=== PATIENT | female | born 1965 | race Native Hawaiian/Other Pacific Islander ===

== ENCOUNTER 2016-12-21 11:37 | Outpatient (CLI) | payer BC | END 2016-12-21 12:37 | disposition home or self-care (01) | LOC: RESP 11:37 | DX: Z01.812 Encounter for preprocedural laboratory examination (principal); Z79.01 Long term (current) use of anticoagulants; M48.06 Spinal stenosis, lumbar region; M53.2X6 Spinal instabilities, lumbar region; Z51.81 Encounter for therapeutic drug level monitoring; M05.69 Rheumatoid arthritis of multiple sites with involvement of other organs and systems; M05.79 Rheumatoid arthritis with rheumatoid factor of multiple sites without organ or systems involvement ==

== ENCOUNTER 2017-06-11 09:36 | Outpatient (CLI) | payer BC | END 2017-06-11 10:40 | disposition home or self-care (01) | LOC: RESP 09:36 | DX: Z01.818 Encounter for other preprocedural examination (principal) | CPT/HCPCS: 93005 ==

== ENCOUNTER 2017-07-17 14:29 | Outpatient (CLI) | payer BC ==
[2017-07-17 14:49] LABS: POTASSIUM 4.4 mmol/L (3.6-5.2)
[2017-07-17 14:52] LABS: PLATELET COUNT 430 K/uL (152-353)
== END 2017-07-17 19:17 | disposition home or self-care (01) ==
LOC: LAB 14:29
PROVIDERS: Internal Medicine
DX: T81.4XXD Infection following a procedure, subsequent encounter (principal)
CPT/HCPCS: 80053; 82550; 85027

== ENCOUNTER 2017-07-24 15:38 | Outpatient (CLI) | payer BC ==
[2017-07-24 16:08] LABS: PLATELET COUNT 349 K/uL (152-353)
[2017-07-24 16:30] LABS: POTASSIUM 4.3 mmol/L (3.6-5.2)
== END 2017-07-24 16:40 | disposition home or self-care (01) ==
LOC: LAB 15:38
PROVIDERS: Internal Medicine
DX: T84.69XD Infection and inflammatory reaction due to internal fixation device of other site, subsequent encounter (principal)
CPT/HCPCS: 80053; 82550; 85027

== ENCOUNTER 2017-07-30 11:35 | Outpatient (CLI) | payer BC ==
[2017-07-30 12:21] LABS: PLATELET COUNT 306 K/uL (152-353)
[2017-07-30 12:39] LABS: POTASSIUM 4.1 mmol/L (3.6-5.2)
== END 2017-07-30 20:03 | disposition home or self-care (01) ==
LOC: LAB 11:35
PROVIDERS: Internal Medicine
DX: T81.4XXD Infection following a procedure, subsequent encounter (principal)
CPT/HCPCS: 80053; 82550; 85027

== ENCOUNTER 2017-08-05 14:27 | Outpatient (CLI) | payer BC ==
[2017-08-05 14:40] LABS: PLATELET COUNT 325 K/uL (152-353)
[2017-08-05 15:12] LABS: POTASSIUM 4.1 mmol/L (3.6-5.2)
== END 2017-08-05 15:30 | disposition home or self-care (01) ==
LOC: LAB 14:27
PROVIDERS: Internal Medicine
DX: T81.4XXD Infection following a procedure, subsequent encounter (principal)
CPT/HCPCS: 80053; 82550; 85027

== ENCOUNTER 2017-08-15 07:53 | Outpatient (CLI) | payer BC ==
[2017-08-15 08:06] LABS: POTASSIUM 3.5 mmol/L (3.6-5.2); SODIUM 137 mmol/L (136-145)
[2017-08-15 08:07] LABS: PLATELET COUNT 360 K/uL (152-353)
== END 2017-08-15 08:55 | disposition home or self-care (01) ==
LOC: LAB 07:53
PROVIDERS: Internal Medicine
DX: T81.4XXD Infection following a procedure, subsequent encounter (principal)
CPT/HCPCS: 80053; 82550; 85027

== ENCOUNTER 2017-08-19 15:07 | Outpatient (CLI) | payer BC ==
[2017-08-19 16:04] LABS: PLATELET COUNT 338 K/uL (152-353)
[2017-08-19 16:28] LABS: POTASSIUM 4.2 mmol/L (3.6-5.2); SODIUM 139 mmol/L (136-145)
== END 2017-08-19 16:10 | disposition home or self-care (01) ==
LOC: LAB 15:07
PROVIDERS: Internal Medicine
DX: T81.4XXD Infection following a procedure, subsequent encounter (principal)
CPT/HCPCS: 80053; 82550; 85027

== ENCOUNTER 2017-08-27 14:02 | Outpatient (CLI) | payer BC ==
[2017-08-27 14:32] LABS: PLATELET COUNT 291 K/uL (152-353)
[2017-08-27 14:50] LABS: POTASSIUM 4.1 mmol/L (3.6-5.2)
== END 2017-08-27 19:04 | disposition home or self-care (01) ==
LOC: LAB 14:02
PROVIDERS: Internal Medicine
DX: I10 Essential (primary) hypertension (principal); T84.69XA Infection and inflammatory reaction due to internal fixation device of other site, initial encounter
CPT/HCPCS: 80053; 82550; 85027

== ENCOUNTER 2017-09-02 13:15 | Outpatient (CLI) | payer BC ==
[2017-09-02 14:07] LABS: PLATELET COUNT 338 K/uL (152-353)
[2017-09-02 14:31] LABS: POTASSIUM 3.9 mmol/L (3.6-5.2); SODIUM 134 mmol/L (136-145)
== END 2017-09-02 14:15 | disposition home or self-care (01) ==
LOC: LAB 13:15
PROVIDERS: Internal Medicine
DX: T81.4XXD Infection following a procedure, subsequent encounter (principal)
CPT/HCPCS: 80053; 82550; 85027

== ENCOUNTER 2017-11-01 09:16 | Outpatient (CLI) | payer BC | END 2017-11-01 10:20 | disposition home or self-care (01) | LOC: RAD 09:16 | DX: G47.8 Other sleep disorders (principal); M54.5 Low back pain; M05.79 Rheumatoid arthritis with rheumatoid factor of multiple sites without organ or systems involvement; M79.7 Fibromyalgia; M35.1 Other overlap syndromes; M54.2 Cervicalgia ==

== ENCOUNTER 2017-12-23 14:19 | Outpatient (CLI) | payer BC | END 2017-12-23 20:27 | disposition home or self-care (01) | LOC: RAD 14:19 | DX: Z48.89 Encounter for other specified surgical aftercare (principal) ==

== ENCOUNTER 2018-08-13 13:00 | Outpatient (CLI) | payer BC | END 2018-08-13 21:04 | disposition home or self-care (01) | LOC: RESP 13:00 | DX: G56.02 Carpal tunnel syndrome, left upper limb (principal); G56.22 Lesion of ulnar nerve, left upper limb | CPT/HCPCS: 95885; 95911 ==

== ENCOUNTER 2018-09-23 09:00 | Outpatient (CLI) | payer BC | END 2018-09-23 22:14 | disposition home or self-care (01) | LOC: RESP 09:00 | DX: M79.662 Pain in left lower leg (principal); M79.661 Pain in right lower leg ==

== ENCOUNTER 2019-01-09 08:05 | Outpatient (CLI) | payer OTHER ==
[2019-01-09 08:22] LABS: PLATELET COUNT 289 K/uL (152-353)
[2019-01-09 08:43] LABS: POTASSIUM 3.9 mmol/L (3.6-5.2)
== END 2019-01-09 19:37 | disposition home or self-care (01) ==
LOC: LABW 08:05
PROVIDERS: Internal Medicine
DX: I10 Essential (primary) hypertension (principal)
CPT/HCPCS: 36415; 80053; 80061; 81000; 84439; 84443; 85027

== ENCOUNTER 2019-01-16 13:21 | Outpatient (CLI) | payer OTHER | END 2019-01-16 22:24 | disposition home or self-care (01) | LOC: RAD 13:21 | DX: Z13.820 Encounter for screening for osteoporosis (principal) ==

== ENCOUNTER 2019-07-24 09:54 | Outpatient (CLI) | payer OTHER | END 2019-07-24 22:16 | disposition home or self-care (01) | LOC: MAMMO 09:54 | DX: Z12.31 Encounter for screening mammogram for malignant neoplasm of breast (principal) ==

== ENCOUNTER 2019-09-01 10:21 | Outpatient (CLI) | payer OTHER | END 2019-09-01 19:31 | disposition home or self-care (01) | LOC: RAD 10:21 | DX: M05.79 Rheumatoid arthritis with rheumatoid factor of multiple sites without organ or systems involvement (principal) ==

== ENCOUNTER 2019-10-31 08:47 | Outpatient (CLI) | payer OTHER ==
[2019-10-31 09:13] LABS: POTASSIUM 4.1 mmol/L (3.6-5.2)
[2019-10-31 09:55] LABS: PLATELET COUNT 245 K/uL (152-353)
== END 2019-10-31 20:08 | disposition home or self-care (01) ==
LOC: LABW 08:47
PROVIDERS: Internal Medicine
DX: K21.9 Gastro-esophageal reflux disease without esophagitis (principal)
CPT/HCPCS: 36415; 80053; 82150; 83690; 85027; 86318

== ENCOUNTER 2019-11-02 14:31 | Emergency (ER) | payer OTHER ==
[~2019-11-02] VITALS: Ht 167.6 cm; Wt 81.6 kg
[2019-11-02 14:39] VITALS: BP 124/69; TEMP 98.2
[2019-11-02 15:33] LABS: PLATELET COUNT 245 K/uL (152-353)
[2019-11-02 15:45] LABS: POTASSIUM 3.6 mmol/L (3.6-5.2); SODIUM 143 mmol/L (136-145)
== END 2019-11-02 16:15 | disposition home or self-care (01) ==
LOC: ED 14:31
PROVIDERS: Emergency Medicine
DX: K21.9 Gastro-esophageal reflux disease without esophagitis (principal)
CPT/HCPCS: 36415; 80053; 82550; 84484; 85027; 93005; 99284

== ENCOUNTER 2019-11-04 09:02 | Outpatient (CLI) | payer OTHER | END 2019-11-04 19:28 | disposition home or self-care (01) | LOC: US 09:02 | DX: K21.9 Gastro-esophageal reflux disease without esophagitis (principal) ==

== ENCOUNTER 2020-04-25 11:30 | Outpatient (CLI) | payer OTHER | END 2020-04-25 23:12 | disposition home or self-care (01) | LOC: RAD 11:30 | DX: M50.322 Other cervical disc degeneration at C5-C6 level (principal) ==

== ENCOUNTER 2020-04-29 13:09 | Outpatient (CLI) | payer OTHER | END 2020-04-29 18:58 | disposition home or self-care (01) | LOC: MRI 13:09 | DX: M50.322 Other cervical disc degeneration at C5-C6 level (principal) ==

== ENCOUNTER 2020-08-12 13:29 | Outpatient (CLI) | payer OTHER | END 2020-08-12 23:27 | disposition home or self-care (01) | LOC: MAMMO 13:29 | DX: Z12.31 Encounter for screening mammogram for malignant neoplasm of breast (principal) ==

== ENCOUNTER 2020-12-16 10:52 | Outpatient (CLI) | payer OTHER | END 2020-12-16 23:02 | disposition home or self-care (01) | LOC: RAD 10:52 | PROVIDERS: ATTEND Nurse Practitioner Family | DX: M06.09 Rheumatoid arthritis without rheumatoid factor, multiple sites (principal); M25.552 Pain in left hip; M47.892 Other spondylosis, cervical region; M54.2 Cervicalgia; M54.5 Low back pain; M85.89 Other specified disorders of bone density and structure, multiple sites ==

== ENCOUNTER 2020-12-21 10:53 | Outpatient (CLI) | payer OTHER | END 2020-12-21 21:52 | disposition home or self-care (01) | LOC: LABW 10:53 | PROVIDERS: ATTEND Internal Medicine Cardiovascular Disease | DX: Z79.899 Other long term (current) drug therapy (principal) | CPT/HCPCS: 36415; 80061 ==

== ENCOUNTER 2021-01-04 09:43 | Outpatient (CLI) | payer OTHER | END 2021-01-04 21:43 | disposition home or self-care (01) | LOC: CT 09:43 | PROVIDERS: ATTEND Internal Medicine Cardiovascular Disease | DX: R07.9 Chest pain, unspecified (principal) ==

== ENCOUNTER 2021-02-06 10:23 | Outpatient (CLI) | payer OTHER | END 2021-02-06 20:46 | disposition home or self-care (01) | LOC: LABW 10:23 | PROVIDERS: ATTEND Internal Medicine Rheumatology | DX: R74.8 Abnormal levels of other serum enzymes (principal); Z79.899 Other long term (current) drug therapy | CPT/HCPCS: 36415; 82085; 82550 ==

== ENCOUNTER 2021-06-30 15:18 | Outpatient (CLI) | payer OTHER | END 2021-06-30 23:14 | disposition home or self-care (01) | LOC: CT 15:18 | PROVIDERS: ATTEND Internal Medicine Critical Care Medicine | DX: R93.89 Abnormal findings on diagnostic imaging of other specified body structures (principal) ==

== ENCOUNTER 2021-07-20 08:03 | Outpatient (CLI) | payer OTHER | END 2021-07-20 22:09 | disposition home or self-care (01) | LOC: LABW 08:03 | PROVIDERS: ATTEND Internal Medicine Cardiovascular Disease | DX: E78.49 Other hyperlipidemia (principal) | CPT/HCPCS: 36415; 80061 ==

== ENCOUNTER 2021-09-22 08:29 | Outpatient (CLI) | payer OTHER | END 2021-09-22 19:31 | disposition home or self-care (01) | LOC: MAMMO 08:29 | PROVIDERS: ATTEND Nurse Practitioner Family | DX: Z12.31 Encounter for screening mammogram for malignant neoplasm of breast (principal) ==

== ENCOUNTER 2021-10-24 08:34 | Outpatient (CLI) | payer OTHER | END 2021-10-24 18:55 | disposition home or self-care (01) | LOC: MRI 08:34 | PROVIDERS: ATTEND Neurological Surgery | DX: M51.36 Other intervertebral disc degeneration, lumbar region (principal); M51.26 Other intervertebral disc displacement, lumbar region | CPT/HCPCS: 36415; 82565; 84520; A9576 ==

== ENCOUNTER 2021-11-07 13:03 | Outpatient (CLI) | payer OTHER | END 2021-11-07 18:53 | disposition home or self-care (01) | LOC: RAD 13:03 | PROVIDERS: ATTEND Neurological Surgery | DX: M51.36 Other intervertebral disc degeneration, lumbar region (principal) ==

== ENCOUNTER 2022-03-14 12:52 | Outpatient (CLI) | payer OTHER | END 2022-03-14 19:20 | disposition home or self-care (01) | LOC: MRI 12:52 | PROVIDERS: ATTEND Neurological Surgery | DX: M50.322 Other cervical disc degeneration at C5-C6 level (principal); M06.09 Rheumatoid arthritis without rheumatoid factor, multiple sites; M35.1 Other overlap syndromes; M47.892 Other spondylosis, cervical region; M70.51 Other bursitis of knee, right knee; M77.11 Lateral epicondylitis, right elbow ==

== ENCOUNTER 2022-06-21 09:04 | Outpatient (CLI) | payer OTHER ==
[2022-06-21 09:38] LABS: PLATELET COUNT 240 K/uL (152-353)
[2022-06-21 09:53] LABS: POTASSIUM 3.7 mmol/L (3.6-5.2)
== END 2022-06-21 20:54 | disposition home or self-care (01) ==
LOC: LABW 09:04
PROVIDERS: ATTEND Physician Assistant
DX: E78.49 Other hyperlipidemia (principal); Z79.899 Other long term (current) drug therapy
CPT/HCPCS: 36415; 80053; 80061; 85027

== ENCOUNTER 2022-12-27 11:05 | Outpatient (CLI) | payer OTHER ==
[2022-12-27 11:21] LABS: PLATELET COUNT 214 K/uL (152-353)
[2022-12-27 11:36] LABS: POTASSIUM 3.8 mmol/L (3.6-5.2)
[2022-12-27 11:54] LABS: PARTIAL THROMBOPLASTIN TIME 23.5 SECONDS (24.5-33.6)
== END 2022-12-27 20:41 | disposition home or self-care (01) ==
LOC: LABW 11:05
PROVIDERS: ATTEND Nurse Practitioner Family
DX: Z01.818 Encounter for other preprocedural examination (principal); I10 Essential (primary) hypertension; E78.49 Other hyperlipidemia; E55.9 Vitamin D deficiency, unspecified; K21.9 Gastro-esophageal reflux disease without esophagitis; Z51.81 Encounter for therapeutic drug level monitoring; Z79.899 Other long term (current) drug therapy
CPT/HCPCS: 36415; 80048; 85027; 85610; 85730

== ENCOUNTER 2023-01-01 14:22 | Outpatient (CLI) | payer OTHER | END 2023-01-01 19:41 | disposition home or self-care (01) | LOC: RAD 14:22 | PROVIDERS: ATTEND Anesthesiology | DX: Z01.818 Encounter for other preprocedural examination (principal); M06.8A Other specified rheumatoid arthritis, other specified site ==

== ENCOUNTER 2023-03-04 12:34 | Outpatient (CLI) | payer OTHER | END 2023-03-04 21:21 | disposition home or self-care (01) | LOC: RAD 12:34 | PROVIDERS: ATTEND Neurological Surgery | DX: M54.59 Other low back pain (principal) ==

== ENCOUNTER 2023-04-13 10:56 | Outpatient (CLI) | payer OTHER | END 2023-04-13 20:01 | LOC: RAD 10:56 | PROVIDERS: ATTEND Nurse Practitioner Family | DX: M06.09 Rheumatoid arthritis without rheumatoid factor, multiple sites (principal); M70.51 Other bursitis of knee, right knee; M70.52 Other bursitis of knee, left knee; Z79.69 Long term (current) use of other immunomodulators and immunosuppressants; Z79.899 Other long term (current) drug therapy ==

== ENCOUNTER 2023-06-04 11:28 | Outpatient (CLI) | payer OTHER | END 2023-06-04 19:16 | disposition home or self-care (01) | LOC: RAD 11:28 | PROVIDERS: ATTEND Neurological Surgery | DX: M54.59 Other low back pain (principal) ==

== ENCOUNTER 2023-06-21 21:10 | Emergency (ER) | payer OTHER ==
[~2023-06-21] VITALS: Ht 165.1 cm; Wt 75.8 kg
[2023-06-21 23:45] VITALS: BP 115/58; TEMP 97.8
== END 2023-06-21 23:45 | disposition home or self-care (01) ==
LOC: ED 21:10
DX: T78.40XA Allergy, unspecified, initial encounter (principal); L50.9 Urticaria, unspecified; T78.2XXA Anaphylactic shock, unspecified, initial encounter
CPT/HCPCS: 96361; 96374; 96375; 99284; J1200; J2920; J3490

== ENCOUNTER 2023-08-20 09:34 | Outpatient (CLI) | payer OTHER | END 2023-08-20 20:08 | disposition home or self-care (01) | LOC: MAMMO 09:34 | PROVIDERS: ATTEND Obstetrics & Gynecology | DX: Z12.31 Encounter for screening mammogram for malignant neoplasm of breast (principal); Z13.820 Encounter for screening for osteoporosis; N95.8 Other specified menopausal and perimenopausal disorders ==